=== PATIENT | female | born 1995 | race Caucasian/White ===

== ENCOUNTER 2017-10-21 23:12 | Emergency (ER) | payer SELFPAY ==
[~2017-10-21] VITALS: Ht 167.6 cm; Wt 50.0 kg
[2017-10-22 06:27] VITALS: BP 127/82
== END 2017-10-22 06:28 | disposition home or self-care (01) ==
LOC: ER 23:40
DX: S01.512A Laceration without foreign body of oral cavity, initial encounter (principal); Y08.89XA Assault by other specified means, initial encounter; Y93.89 Activity, other specified; Y92.89 Other specified places as the place of occurrence of the external cause; Y99.8 Other external cause status
CPT/HCPCS: 81025; 99283; X7700; Z7610